=== PATIENT | female | born 1995 ===

== ENCOUNTER 2021-10-25 12:25 | Emergency (ER) | payer OTHER ==
[2021-10-25 12:49] VITALS: TEMP 98; BMI 30.6
[2021-10-25 13:55] LABS: BASO % 0.2 % (0-2.0); EOS % 0.3 % (0-4.5); HEMATOCRIT 39.2 % (32.4-45.2); LYMPH % 32.9 % (8-40); MCH 30.4 pg (25.7-33.7); MCHC 33.1 g/dl (32.0-36.0); MEAN CELL VOLUME 91.7 fl (80-96); MEAN PLT VOLUME 7.6 fl (7.5-11.1); MONO % 5.6 % (3.8-10.2); PLATELET COUNT 375 10^3/uL (134-434); RBC 4.27 M/mm3 (3.60-5.2); RDW 12.9 % (11.6-15.6); WHITE BLOOD COUNT 9.1 K/mm3 (4.0-10.0)
[2021-10-25 14:11] LABS: SODIUM 140 mmol/L (136-145)
[2021-10-25 14:13] LABS: CALCIUM 9.3 mg/dL (8.5-10.1)
[2021-10-25 14:14] LABS: ALBUMIN 4.1 g/dl (3.4-5.0); BLOOD UREA NITROGEN 11.2 mg/dL (7-18); CO2 26 mmol/L (21-32); GLUCOSE,RANDOM 86 mg/dL (74-106)
[2021-10-25 14:17] LABS: CHOLESTEROL 147 mg/dL (50-200); CREATININE 0.9 mg/dL (0.55-1.3); SGOT/AST 18 U/L (15-37); SGPT/ALT 20 U/L (13-61); TRIGLYCERIDES 66 mg/dL (0-150)
[2021-10-25 14:18] LABS: BILIRUBIN,TOTAL 0.2 mg/dL (0.2-1); LDL CHOLESTEROL (ONLY SJRH) 91 mg/dL (5-100); TOT PROT 7.5 g/dl (6.4-8.2)
[2021-10-25 14:19] LABS: HDL CHOLESTEROL 42 mg/dL (40-60)
[2021-10-25 14:20] LABS: ALK PHOS 71 U/L (45-117)
[2021-10-25 14:21] LABS: INR 1.05 (0.83-1.09); PROTHROMBIN TIME (PATIENT) 12.1 SEC (9.7-13.0)
[2021-10-25 14:23] LABS: ANION GAP 6 MMOL/L (8-16); CHLORIDE 108 mmol/L (98-107)
[2021-10-25 14:24] LABS: ACTIVATED PTT 36.8 SECONDS (25.2-36.5)
[2021-10-25 14:26] VITALS: BP 126/90; PULSE 92
[2021-10-25 15:27] LABS: PH,URINE 6.5 (5.0-8.0); URINE APPEARANCE CLEAR; URINE BILIRUBIN NEGATIVE (NEGATIVE); URINE COLOR YELLOW; URINE GLUCOSE (UA) NEGATIVE (NEGATIVE); URINE KETONE TRACE (NEGATIVE); URINE LEUK ESTERASE NEGATIVE (NEGATIVE); URINE NITRITE NEGATIVE (NEGATIVE); URINE PROTEIN NEGATIVE (NEGATIVE); URINE UROBILINOGEN 0.2 mg/dL (0.2-1.0)
[2021-10-25] MEDS ORDERED: ACETAMINOPHEN 500 MG TABLET (FP) PO ONE (15:57)
[2021-10-25] MEDS ORDERED: ACETAMINOPHEN 325 MG TABLET (FP) ONE (16:06)
== END 2021-10-25 17:45 | disposition home or self-care (01) ==
LOC: JER 12:25
DX: R20.2 Paresthesia of skin (principal)
CPT/HCPCS: 36415; 70450-TC; 70553-TC; 80053; 80061; 81003; 82550; 82962; 83036; 84484; 84703; 85025; 85610; 85730; 86850; 86900; 86901; 93005; 93010; 99285-25; A9579; C1887